=== PATIENT | female | born 1975 | race Caucasian/White ===

== ENCOUNTER 2024-08-30 08:35 | Observation (INO) ==
--- NOTE | 2024-08-07 13:17 | PAT Medication Instructions ---
Medication Instructions Date of Service August 07, 2024 Home Medications bupropion HCl 150 mg 24 hr tablet, extended release (Wellbutrin XL) 150 mg PO QAM bupropion HCl 300 mg 24 hr tablet, extended release (Wellbutrin XL) 300 mg PO QAM cholecalciferol (vitamin D3) 125 mcg (5,000 unit) tablet (Vitamin D3) 125 mcg PO QAM dextroamphetamine-amphetamine 10 mg tablet (Adderall) 10 mg PO QAM dextroamphetamine-amphetamine 20 mg tablet (Adderall) 20 mg PO QAM escitalopram oxalate 20 mg tablet (Lexapro) 20 mg PO QAM lisinopril 10 mg tablet 10 mg PO HS montelukast 10 mg tablet (Singulair) 10 mg PO HS norethindrone (contraceptive) 1 tab PO HS omega-3 fatty acids 2 cap PO DAILY semaglutide 2 mg/dose (8 mg/3 mL) subcutaneous pen injector (Ozempic) 2 mg subcut Q7D STOP 7 days before surgery semaglutide 2 mg/dose (8 mg/3 mL) subcutaneous pen injector (Ozempic) 2 mg s ubcut Q7D ASK your prescriber and surgeon norethindrone (contraceptive) 1 tab PO HS STOP taking 2 weeks before surgery (or as soon as possible if surgery is within 2 weeks) omega-3 fatty acids 2 cap PO DAILY DO NOT take the morning of surgery cholecalciferol (vitamin D3) 125 mcg (5,000 unit) tablet (Vitamin D3) 125 mcg PO QAM dextroamphetamine-amphetamine 10 mg tablet (Adderall) 10 mg PO QAM dextroamphetamine-amphetamine 20 mg tablet (Adderall) 20 mg PO QAM Take morning of surgery With a small sip of water, OTHERWISE NOTHING TO EAT OR DRINK AFTER MIDNIGHT: bupropion HCl 150 mg 24 hr tablet, extended release (Wellbutrin XL) 150 mg PO QAM bupropion HCl 300 mg 24 hr tablet, extended release (Wellbutrin XL) 300 mg PO QAM escitalopram oxalate 20 mg tablet (Lexapro) 20 mg PO QAM Take evening before surgery lisinopril 10 mg tablet 10 mg PO HS montelukast 10 mg tablet (Singulair) 10 mg PO HS Other Notes If you have any questions please call us at [phone] or [phone] or [phone] or [phone]
--- NOTE | 2024-08-09 08:31 | Anesthesiology Consultation ---
Date of Service August 09, 2024 Assessment & Plan (1) Encounter for pre-operative examination: - Check BSG, test DOS - Infectious disease screening: Per assessment on 08/09/24- No known recent infectious disease contacts or current infectious disease symptoms. - GLP-1 medication instructions: Patient informed by PAT to stop 7 days prior to surgery- voiced understanding. DOS 08/30. Advised last dose to be 08/19. - Patient acceptable risk for surgery pending surgeon-ordered PCP preop evaluation (BARRY Flores, appt 08/12). Chart Review Chart Review: Patient seen in Pre Admission Testing Teaching & Discussion Pre-Anesthesia Teaching/Discussion Notes: Instructed NPO after midnight before surgery,except medications with 15 cc of water. Medication instructions provided according to the PAT guidelines. History Surgery Operation Date: 08/30/24 10:05 Proposed Procedures p C5-C7 Anterior Cervical Discectomy and Fusion with Spinal Cord Monitoring - Carroll Cervantes, DO Height/Weight Height: 5 ft 2 in Weight: 105.9 kg Allergies Allergy/AdvReac Type Severity Reaction Status Date / Time No Known Allergies Allergy Verified 08/06/24 12:13 Medications Home Medications Medication Instructions Recorded Confirmed Last Taken bupropion HCl 150 mg 24 hr tablet, 150 mg PO QAM 08/06/24 08/06/24 Unknown extended release (Wellbutrin XL) bupropion HCl 300 mg 24 hr tablet, 300 mg PO QAM 08/06/24 08/06/24 Unknown extended release (Wellbutrin XL) cholecalciferol (vitamin D3) 125 125 mcg PO QAM 08/06/24 08/06/24 Unknown mcg (5,000 unit) tablet (Vitamin D3) dextroamphetamine-amphetamine 10 10 mg PO QAM 08/06/24 08/06/24 Unknown mg tablet (Adderall) dextroamphetamine-amphetamine 20 20 mg PO QAM 08/06/24 08/06/24 Unknown mg tablet (Adderall) escitalopram oxalate 20 mg tablet 20 mg PO QAM 08/06/24 08/06/24 Unknown (Lexapro) lisinopril 10 mg tablet 10 mg PO HS 08/06/24 08/06/24 Unknown montelukast 10 mg tablet 10 mg PO HS 08/06/24 08/06/24 Unknown (Singulair) norethindrone (contraceptive) 1 tab PO HS 08/06/24 08/06/24 Unknown omega-3 fatty acids 2 cap PO DAILY 08/06/24 08/06/24 Unknown semaglutide 2 mg/dose (8 mg/3 mL) 2 mg subcut Q7D 08/06/24 08/06/24 Unknown subcutaneous pen injector (Ozempic) Past Medical History Medical History Anxiety and depression History of ADHD History of hypertension History of prediabetes Sleep apnea No device Exercise / Class Metabolic Activity II 4-5 Yardwork/Stairs/Walk up hill Past Surgical History Surgical History History of esophagogastroduodenoscopy (EGD) w/dilation [place] teeth extracted Past Anesthesia History No Hx of Anesthesia Complications and No Family Hx of Anesthesia Complications History of PONV No Hx of PONV and No Hx of Motion Sickness Social History Smoking Status: Never smoker Do You Dip or Chew Tobacco: No Hx Alcohol Use: Yes alcohol intake frequency: holidays/special occasions only (Rare) Hx Substance Use: Yes substance use type: marijuana (very rare use- gummies) Review of Systems Patient denies chest pain, shortness of breath, dyspnea on exertion, fever, chills, cough, wheezing, palpitations. Physical Exam Vital Signs BP 133/86 P 76 TEMP 98.3 SP02 96%RA RESP 18 Physical Full cervical extension range of motion. Full TMJ range of motion. TMD 3 finger breaths Mallampati Score III Dentition: intact, right upper side implant Lungs: clear throughout to auscultation Cardiac: regular rate and rhythm, no murmurs noted Spine: normal Carotid arteries: negative bruit Extremities: no LE edema Lab Results Anesthesia Preop Results Results Anesthesia Widget: WBC 5.63 K/ul (4.8-10.8) 08/09/24 Hgb 13.2 g/dl (12.0-16.0) 08/09/24 Hct 38.8 % (37.0-47.0) 08/09/24 Plt 326 K/uL (130-400) 08/09/24 Na 139 mmol/L (136-145) 08/09/24 K 3.9 mmol/L (3.5-5.1) 08/09/24 Cl 105 mmol/L (98-107) 08/09/24 CO2 28 mmol/L (21-32) 08/09/24 BUN 12 mg/dl (6-23) 08/09/24 Creat 0.97 mg/dl (0.6-1.2) 08/09/24 Glucose Level 89 mg/dl (70-99(Fasting)) 08/09/24 PT 10.5 Seconds (9.0-12.0) 08/09/24 PTT 27 Seconds (21-31) 08/09/24 INR 1.0 (0.9-1.1) 08/09/24 Urine Color Yellow 08/09/24 Urine Appearance Cloudy (Clear) A 08/09/24 Urine pH 7.0 (4.5-7.5) 08/09/24 Urine Specific [place] 1.022 (1.000-1.030) 08/09/24 Urine Protein Negative (Negative) 08/09/24 Urine Glucose (UA) Negative (Negative) 08/09/24 Urine Ketones 1+ (Negative) H 08/09/24 Urine Blood Negative (Negative) 08/09/24 Urine Nitrite Negative (Negative) 08/09/24 Urine Bilirubin Negative (Negative) 08/09/24 Urine Urobilinogen Negative (Negative) 08/09/24 Urine Leukocyte Esterase Negative (Negative) 08/09/24 Urine WBC (Auto) 0-5 /hpf (0-5) 08/09/24 Urine RBC (Auto) 6-10 /hpf (0-2) H 08/09/24 Urine Hyaline Casts (Auto) 0-2 /lpf (0-2) 08/09/24 Urine Epithelial Cells (Auto) 0-2 /hpf (0-2) 08/09/24 Urine Bacteria (Auto) None Seen (None Seen) 08/09/24 Urine Amorphous Sediment Present (None Prsent) A 08/09/24 Blood Type O Positive 08/09/24 Antibody Screen NEGATIVE 08/09/24 Testing Laboratory Results HGBA1C (04/01/24): 5.2% Electrocardiogram Date: 08/09/24 NSR at 84bpm. "Normal ECG" Chest X-Ray Date: 08/09/24 Findings: + NAD
[~2024-08-30 08:35] MED LIST: DEXAMETHASONE SOD INJ 4 MG/ML VIAL ONE; KETAMINE HCL 10MG/ML SYR ONE; LIDOCAINE 2% 2 ML VIAL/AMP(20MG/ML) INFIL ONE; MIDAZOLAM HCL 1 MG/ML 2ML VIAL ONE; ONDANSETRON INJ 2 MG/ML 2 ML VIAL ONE; PROPOFOL IV EMULSION 10 MG/ML 100 ML VIAL IV ONE; PROPOFOL IV EMULSION 10 MG/ML 20 ML VIAL IV ONE; ROCURONIUM BROMIDE 10 MG/ML 5 ML VIAL IV ONE; fentaNYL citrate PF 100 MCG/2 ML VIAL ONE
[2024-08-30] MEDS: ACETAMINOPHEN 500 MG TAB PO SCH (09:03)
[2024-08-30] MEDS: CeleBREX 200 MG CAP PO SCH (09:03)
[2024-08-30] MEDS: LR 15ML/HR IV SCH (09:03)
[2024-08-30] MEDS: GABAPENTIN 900 MG DOSE PO SCH (09:03)
--- NOTE | 2024-08-30 09:43 | History & Physical Bridge Note ---
Date of Service August 30, 2024 History & Physical Bridge Note I have examined the patient, reviewed the History & Physical and in the interval since the performance of the History & Physical I have noted the following changes of clinical significance: no changes noted
--- NOTE | 2024-08-30 09:44 | History & Physical Report ---
Date of Service August 30, 2024 Assessment & Plan (1) Cervical spondylosis with radiculopathy: Plan: C5-C7 anterior cervical discectomy and fusion History of Present Illness Chief Complaint: Neck and arm pain Primary Care Provider: Judi Curry PA-C This is a 49-year-old female presents with chronic persistent neck and arm pain and failing course of nonoperative care she is here for surgical intervention. Allergies Allergy/AdvReac Type Severity Reaction Status Date / Time No Known Allergies Allergy Verified 08/30/24 08:48 Home Medications Medication Instructions Recorded Confirmed Type bupropion HCl 150 mg 24 hr tablet, 150 mg PO QAM 08/06/24 08/30/24 History extended release (Wellbutrin XL) bupropion HCl 300 mg 24 hr tablet, 300 mg PO QAM 08/06/24 08/30/24 History extended release (Wellbutrin XL) cholecalciferol (vitamin D3) 125 125 mcg PO QAM 08/06/24 08/30/24 History mcg (5,000 unit) tablet (Vitamin D3) dextroamphetamine-amphetamine 10 10 mg PO QAM 08/06/24 08/30/24 History mg tablet (Adderall) dextroamphetamine-amphetamine 20 20 mg PO QAM 08/06/24 08/30/24 History mg tablet (Adderall) escitalopram oxalate 20 mg tablet 20 mg PO QAM 08/06/24 08/30/24 History (Lexapro) lisinopril 10 mg tablet 10 mg PO HS 08/06/24 08/30/24 History montelukast 10 mg tablet 10 mg PO HS 08/06/24 08/30/24 History (Singulair) norethindrone (contraceptive) 1 tab PO HS 08/06/24 08/30/24 History omega-3 fatty acids 2 cap PO DAILY 08/06/24 08/30/24 History semaglutide 2 mg/dose (8 mg/3 mL) 2 mg subcut Q7D 08/06/24 08/30/24 History subcutaneous pen injector (Ozempic) Past Med/Surg History Problem List (Updated 08/30/24 @ 09:44 by Carroll Cervantes DO) Cervical spondylosis with radiculopathy Encounter for pre-operative examination Medical History Anxiety and depression History of ADHD History of hypertension History of prediabetes Sleep apnea No device Surgical History History of esophagogastroduodenoscopy (EGD) w/dilation [place] teeth extracted Social History (System 01/14/22 @ 12:56 by Laura Escobedo) Smoking Status: Never smoker Second Hand Exposure: Yes (hx as child); Do You Dip or Chew Tobacco: No; Tobacco Cessation Education Requested by Patient: No Hx Alcohol Use: Yes Hx Substance Use: Yes Preferred Language: Occitan Communication Ability: Effective 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
[2024-08-30] MEDS ORDERED: PROMETHAZINE HCL 6.25 MG in SODIUM CHLORIDE 0.9% 50 ML IV PRN (10:02)
[2024-08-30] MEDS ORDERED: ATROPINE SULFATE 0.1 MG/ML 10ML SYR IV PRN (10:02)
[2024-08-30] MEDS ORDERED: LABETALOL HCL IV 5 MG/ML 20ML IV PRN (10:02)
[2024-08-30] MEDS ORDERED: ONDANSETRON INJ 2 MG/ML 2 ML VIAL IV PRN ×2 (10:02→13:35)
[2024-08-30] MEDS: ceFAZolin 2000MG 2,000 MG/15 ML SYR IV SCH ×2 (10:08→17:52)
[2024-08-30] MEDS: ceFAZolin 330 MG/ML 1 GM VIAL ONE (10:42)
[2024-08-30] MEDS: FLOSEAL HEMOSTATIC MATRIX 10ML TOP ONE (10:43)
[2024-08-30] MEDS ORDERED: fentaNYL citrate PF 100 MCG/2 ML VIAL ONE (10:46)
[2024-08-30] MEDS ORDERED: SUGAMMADEX SODIUM 200 MG/2 ML VIAL IV ONE (11:03)
[2024-08-30] MEDS ORDERED: ROCURONIUM BROMIDE 10 MG/ML 5 ML VIAL IV ONE ×2 (11:04)
[2024-08-30] MEDS ORDERED: LIDOCAINE 2% 2 ML VIAL/AMP(20MG/ML) INFIL ONE (11:04)
--- NOTE | 2024-08-30 11:41 | Operative Report ---
Post Operative Report Pre & Post Diagnosis Operation Date: 08/30/24 09:45 Pre-Op Diagnosis: Cervical Spondylosis with Radiculopathy Post-Op Diagnosis: Cervical Spondylosis with Radiculopathy I identified the patient and participated in the time-out.: Yes Procedure Operation Date: 08/30/24 09:45 Actual Procedures #1 intracervical discectomy with bilateral foraminotomies C5-C6 C6-C7. #2 intracervical thesis C5-C6 C6-C7. #3 placement of Spira 8 mm cage filled with os design bone graft at C5-C6 C6-C7. #4 application of K2m plate and screws across C5-C6 C6-C7. Surgeon Carroll Cervantes, DO [employer] Ubaldo Christy Estimated Blood Loss 10 Findings See Below The patient is 5 foot 2 weighing 107 kg with a BMI in excess of 43. The patient brought him straight contributed significant technical difficulty with positioning exposure and the procedure itself. This had at least 50% increased operative time. And recommending a modifier 22. Specimens None Indications This is a 49-year-old female who presents with above-mentioned diagnosis of failed course of nonoperative care is here for surgical invention. Description of Procedure Patient was met with identified informed consent obtained. Patient was then taken to the operative suite underwent intubation placed in the supine position on the Samuel table atop the Allan frame. All bony prominences well-padded eyes inspected to ensure no external pressure placed upon them. This point the anterior cervical spine was prepped and draped in normal sterile fashion. With the assistance of fluoroscopy identified the C6 vertebral body. Transverse incision was placed directly overlying this region. Blunt dissection with the assistance of bipolar electrocautery was then performed down to and exposing the anterior cervical spine from C 5 to C7. Self-retaining retractor was placed. Then performed a complete discectomy of C5-C6 out to the uncovertebral joints bilaterally. [place] distracting pins utilized to assist in visualization. Removed all posterior neck fibers largely ligament bilateral foraminotomies performed. Endplates burred to subcortical bleeding bone and an 8 mm spiral cage filled with os design bone graft tapped in position. And then proceeded to C6-C7. Again complete discectomy performed. This included bilateral foraminotomies and removal posterior 8 mm spiral cage filled with os design bone graft to have the position. A K2 M plate screw was then applied with the assistance of fluoroscopy. Distractor apparatus was removed.. All anterior osteophytes burred to smooth cortical surface. Incision was then rohith irrigated explored to ensure no damage surrounding structures remaining bleeding. 10 round GEOVANNA drain inserted. The incision was then closed with 2 Vicryl in the fashion of 4 Monocryl for final closure. Steri-Strips sterile dressing placed. Patient waken taken the PACU stable addition. Please note spinal cord monitoring was utilized at the procedure no changes noted. Ubaldo samson was present at the entire surgery and while the patient positioning complex portion of the surgery and final skin closure. Im ordering 10 grams of Collagen Powder ([facility] A6010 Primary Dressing) and 10 bordered super absorbent ([facility] A6196 Secondary Dressing) to treat an incision wound that was caused by a spine procedure. The incision is approximately 2 cm(W) x 4 cm(L) down to the spinal column and epidural space 2 cm (D) in size and is a full thickness wound showing no signs of infection. Collagen comes in 1 gram packets so 10 packets were ordered. Given the size of the wound, with moderate exudate I chose to order a 10 day supply. The patient will be provided instructions for proper application of the collagen wound kit. The patient will be asked to apply the collagen powder daily and then cover it with sterile dressings dispensed. Collagen was selected as I expect the collagen to attract monocytes and fibroblasts, act as a sacrificial substrate for MMPs, and ultimately proved a matrix for tissue and vessel growth. The collagen will act as a primary dressing in this scenario. It is medically necessary for proper healing of these wounds to improve bioavailability and contact with each wound surface, this is also to help prevent infection of wounds and promote healing ultimately leading to a better healing outcome and limit the risk of infection. I attest to the content of the Intraoperative Record and any orders documented therein. Any exceptions are noted below.
--- NOTE | 2024-08-30 11:51 | Fluoroscopy Report ---
FL cervical 2-3V CLINICAL HISTORY: C5-C7 ACDF COMPARISON STUDY: None FLUOROSCOPY TIME: 14 seconds FLUOROSCOPY IMAGES: 3 EXPOSURE DOSE: 4 mGy FINDINGS: Fluoroscopy was provided for lower cervical spine metallic fusion. IMPRESSION: Intraoperative fluoroscopy. ACT 112: Negative or not required by law. Electronically signed by: Carlos A Holden M.D. 08/30/2024 11:49 AM
[2024-08-30] MEDS: HYDROmorphone INJ 1 MG/ML SYRINGE IV PRN (12:00)
--- NOTE | 2024-08-30 13:09 | Anesthesiology Progress Note ---
Date of Service August 30, 2024 Anesthesia Post Procedure Vital Signs Vital Signs: Temp Pulse Pulse Resp BP Pulse Ox O2 Del Method 08/30/24 13:05 75 12 160/97 H 98 Nasal Cannula 08/30/24 12:55 75 12 168/96 H 98 Nasal Cannula 08/30/24 12:45 76 16 168/98 H 99 Nasal Cannula 08/30/24 12:35 36.7 C 74 14 166/98 H 99 Nasal Cannula 08/30/24 12:25 71 14 163/97 H 98 Nasal Cannula 08/30/24 12:15 70 18 155/98 H 95 Room Air 08/30/24 12:05 76 18 150/103 H 96 Room Air 08/30/24 11:53 36.3 C L 78 18 151/113 H 100 Oxymask 08/30/24 09:23 37 C 75 16 147/94 H 97 Room Air O2 Flow Rate 08/30/24 13:05 2 08/30/24 12:55 2 08/30/24 12:45 2 08/30/24 12:35 2 08/30/24 12:25 2 08/30/24 12:15 08/30/24 12:05 08/30/24 11:53 6 08/30/24 09:23 Pain Intensity Neck: Pain Intensity: 5 Transfer of Care Handoff Completed per policy Notes Mental Status: alert / awake / arousable Patient Amnestic to Procedure: Yes Nausea / Vomiting: adequately controlled Pain: adequately controlled Airway Patency, RR, SpO2: stable & adequate BP & HR: stable & adequate Hydration State: stable & adequate Anesthetic Complications: no major complications apparent
[2024-08-30] MEDS ORDERED: METOCLOPRAMIDE HCL INJ 5 MG/ML 2 ML VIAL IV PRN (13:35)
[2024-08-30] MEDS ORDERED: NALOXONE HCL 0.4 MG/1 ML VIAL/CARP IV PRN (13:35)
[2024-08-30] MEDS ORDERED: HYDROmorphone INJ 1 MG/ML SYRINGE IV PRN (13:35)
[2024-08-30] MEDS ORDERED: dexAMETHasone 8 MG in SYRINGE 0 ML IV PRN (13:35)
[2024-08-30] MEDS ORDERED: HYDROmorphone INJ 0.5 MG/0.5 ML SYR IV PRN (13:35)
[2024-08-30] MEDS ORDERED: SOD PHOSPHATE/SOD BIPHOSPHATE ENEMA 132 ML BTL PR PRN (13:35)
[2024-08-30] MEDS ORDERED: diphenhydrAMINE Capsule 25 MG CAP PO PRN (13:35)
[2024-08-30] MEDS ORDERED: RACEPINEPHRINE 2.25% NEBU SOLN 0.5 ML VIAL INH PRN (13:35)
[2024-08-30] MEDS ORDERED: ALUMINUM/MAGNESIUM SUSP 30 ML UDC PO PRN (13:35)
[2024-08-30] MEDS ORDERED: MAGNESIUM HYDROXIDE SUSP 30 ML UDC PO PRN (13:35)
[2024-08-30] MEDS ORDERED: DO NOT ADMINISTER FLU VACCINE PRN (13:35)
[2024-08-30] MEDS ORDERED: PROMETHAZINE 12.5 MG/50.5 ML BAG IV PRN (13:35)
[2024-08-30] MEDS ORDERED: LORazepam 2 MG/1 ML VIAL IV PRN (13:35)
[2024-08-30] MEDS ORDERED: DO NOT ADMINISTER PNEUMOCOCCAL VACCINE PRN (13:35)
[2024-08-30] MEDS ORDERED: bisacodyL 10 MG SUPP PR PRN (13:35)
[2024-08-30] MEDS ORDERED: FAMOTIDINE 20 MG TAB PO PRN (13:35)
[2024-08-30] MEDS ORDERED: ONDANSETRON 4 MG OD TAB PO PRN (13:35)
[2024-08-30] MEDS ORDERED: hydrOXYzine HCl 25 MG TAB PO PRN (13:35)
[2024-08-30] MEDS ORDERED: LORazepam 0.5 MG TAB PO PRN (13:35)
[2024-08-30] MEDS: LR 60ML/HR IV SCH (13:45)
--- NOTE | 2024-08-30 13:50 | Consultation ---
Date of Consultation August 30, 2024 Assessment & Plan (1) Cervical spondylosis with radiculopathy: (2) Anxiety and depression: (3) History of ADHD: (4) History of hypertension: Plan Ms. Gil is a 49 year old female that presented for an elective cervical discectomy and fusion under the care of Dr. Cervantes after experiencing chronic persistent neck and arm pain and failing nonoperative conservative care. Additional PMH includes: obesity, HTN, anxiety/depression, ADHD. Cervical Discectomy and fusion: POD# 0 s/p C5-C6, C6-C7 discectomy and fusion under the care of Dr. Cervantes. Per ortho for pain control, wound care, anticoagulation and activities. Monitor H&H, pre op hgb 13.2 07/30/24, trend in AM anterior GEOVANNA drain with brittni red bloody output continue incentive spirometry; demonstrated appropriate use Monitor for flatulance and BM Sore throat post op; ordered Chloraseptic spray. PT/OT when appropriate HTN: Chronic Takes Lisinopril QPM; hold for now and reassess on 08/31 normotensive post op; reports home BP 130's systolic range, but becomes elevated into 160's when in a medical setting Anxiety and depression: chronic Takes Wellbutrin and Lexapro; continue ADHD: Chronic Takes Adderall; continue Weight management/Obesity: Takes Ozempic; last dose August 11 in anticipation of surgery. Disposition: PCP: Dr. Curry Code Status: Full Code VTE Prophylaxis: per admitting team I spent a total of 62 minutes coordinating, documenting, and providing care for this patient excluding time spent inthe performance of separately billed services or time spent by another provider/QHP. Supervising Physician Co-Signing Physician Notes Patient seen and examined independently postoperatively on the floors. She is comfortable; not in any distress. She denies fever, chills, chest pain, shortness of breath or abdominal pain. Plan to hold lisinopril dose PM. Continue other home meds. Continue PT OT. Rest per primary I have reviewed the advanced practitioner's documentation, and I agree with, and take responsibility for the plan of care I spent a total of 20 minutes coordinating, documenting, and providing care for this patient excluding time spent in the performance of separately billed services. All of the aforementioned completed while collaborating with the assigned advanced practitioner for a full treatment plan History of Present Illness Requesting Physician: Dr. Cervantes Reason for Consultation: post operative medical consultation Attending Physician: Carroll Cervantes, DO History of Present Illness Ms. Gil is a 49 year old female that presented for an elective cervical discectomy and fusion under the care of Dr. Cervantes after experiencing chronic persistent neck and arm pain and failing nonoperative conservative care. Additional PMH includes: obesity, HTN, anxiety/depression, ADHD. In her hospital room, she is sitting upright in her hospital bed in no apparent distress. Neck collar in place with anterior GEOVANNA drain. Continuous pulse oximeter 96% on 2LNC. She returned to her room from PACU about one hour ago. She denies neuropathic symptoms, Nino, dizziness, chest pain, SOB, abdominal pain or tenderness. She has not passed flatulence yet nor has she had a BM. Discussed pain management options and she demonstrated appropriate use of incentive spiromety. Her only complaint is a sore throat; will order chloroseptic throat spray. was at bedside and provided update[facility] management. We are available 03/10 via [employer] text for any questions for concerns. Please see A/P for further details. Allergies Allergy/AdvReac Type Severity Reaction Status Date / Time No Known Allergies Allergy Verified 08/30/24 08:48 Home Medications Medication Instructions Recorded Confirmed Type bupropion HCl 150 mg 24 hr tablet, 150 mg PO QAM 08/06/24 08/30/24 History extended release (Wellbutrin XL) bupropion HCl 300 mg 24 hr tablet, 300 mg PO QAM 08/06/24 08/30/24 History extended release (Wellbutrin XL) cholecalciferol (vitamin D3) 125 125 mcg PO QAM 08/06/24 08/30/24 History mcg (5,000 unit) tablet (Vitamin D3) dextroamphetamine-amphetamine 10 10 mg PO QAM 08/06/24 08/30/24 History mg tablet (Adderall) dextroamphetamine-amphetamine 20 20 mg PO QAM 08/06/24 08/30/24 History mg tablet (Adderall) escitalopram oxalate 20 mg tablet 20 mg PO QAM 08/06/24 08/30/24 History (Lexapro) lisinopril 10 mg tablet 10 mg PO HS 08/06/24 08/30/24 History montelukast 10 mg tablet 10 mg PO HS 08/06/24 08/30/24 History (Singulair) norethindrone (contraceptive) 1 tab PO HS 08/06/24 08/30/24 History omega-3 fatty acids 2 cap PO DAILY 08/06/24 08/30/24 History semaglutide 2 mg/dose (8 mg/3 mL) 2 mg subcut Q7D 08/06/24 08/30/24 History subcutaneous pen injector (Ozempic) Patient History Medical History Sleep apnea No device History of prediabetes Anxiety and depression History of ADHD History of hypertension Surgical History [place] teeth extracted History of esophagogastroduodenoscopy (EGD) w/dilation Social History Smoking Status: Never smoker Second Hand Exposure: Yes (hx as child); Do You Dip or Chew Tobacco: No; Tobacco Cessation Education Requested by Patient: No Hx Alcohol Use: Yes Hx Substance Use: Yes Preferred Language: Sammarinese Communication Ability: Effective Buyer Grain Required: No Beliefs That Will Affect Care: None Current Living Situation: Spouse Other Information That Helps Us Care for You: No Feels Safe at Home: Yes Safety Concerns: Feels Safe At This Time Assistive Devices: Glasses Review of Systems Review of Systems: Neuro: (-) Falls, trauma, slurred speech HEENT: (-) NINO, dizziness, dysphagia, visual or auditory changes CV: (-) CP, palpitations, swelling Resp: (-) SOB GI: (-) appetite changes, N/V/D, bowel changes : (-) urinary changes Skin: (-) rashes Psych: (-) anxiety, depression Physical Exam Physical Exam: Neuro: AAOx4, PERRLA, no aphagia, memory changes, CNII-XII grossly intact HEENT: head normocephalic, moist mucus membranes CV: S1/S2, (-) M/G/R, (-) edema, cap refill < 3 seconds. Anterior GEOVANNA drain brittni red blood. Resp: Lungs CTA in all skinner. On RA. SpO2 96% continuous monitor GI: Abdomen S/NT/ND, Ax4 bowel sounds, (-) CVA tenderness Musculoskeletal: 5/5 B/L UE strength, 5/5 B/L LE strength. No gait disturbance. neck collar in place Skin: (-) rashes , (-) erythema. Psych: euthymic mood Results & Data Vital Signs (Past 12 Hours) Vital Signs Temp Pulse Pulse Resp BP Pulse Ox O2 Del Method 08/30/24 13:35 36.6 C 79 16 138/92 94 Room Air 08/30/24 13:05 75 12 160/97 H 98 Nasal Cannula 08/30/24 12:55 75 12 168/96 H 98 Nasal Cannula 08/30/24 12:45 76 16 168/98 H 99 Nasal Cannula 08/30/24 12:35 36.7 C 74 14 166/98 H 99 Nasal Cannula 08/30/24 12:25 71 14 163/97 H 98 Nasal Cannula 08/30/24 12:15 70 18 155/98 H 95 Room Air 08/30/24 12:05 76 18 150/103 H 96 Room Air 08/30/24 11:53 36.3 C L 78 18 151/113 H 100 Oxymask 08/30/24 09:23 37 C 75 16 147/94 H 97 Room Air O2 Flow Rate 08/30/24 13:35 08/30/24 13:05 2 08/30/24 12:55 2 08/30/24 12:45 2 08/30/24 12:35 2 08/30/24 12:25 2 08/30/24 12:15 08/30/24 12:05 08/30/24 11:53 6 08/30/24 09:23 Diagnostic Findings Cervical Spine X-Ray 08/30/24 00:00 FL cervical 2-3V CLINICAL HISTORY: C5-C7 ACDF COMPARISON STUDY: None FLUOROSCOPY TIME: 14 seconds FLUOROSCOPY IMAGES: 3 EXPOSURE DOSE: 4 mGy FINDINGS: Fluoroscopy was provided for lower cervical spine metallic fusion. IMPRESSION: Intraoperative fluoroscopy. ACT 112: Negative or not required by law. Electronically signed by: Carlos A Holden M.D. 08/30/2024 11:49 AM
[2024-08-30] MEDS: traMADol HCL 50 MG TABLET PO PRN (14:10)
[2024-08-30] MEDS: ACETAMINOPHEN 1,000 MG/100 ML VIAL IV PRN (14:53)
[2024-08-30] MEDS ORDERED: CHLORASEPTIC (PHENOL) 1.4% SOLN 180 ML BTL MT PRN (15:13)
[2024-08-30] MEDS ORDERED: CHLORASEPTIC (PHENOL) 1.4% SOLN 180 ML BTL PO PRN (15:14)
[2024-08-30] MEDS: ORAL CONTRACEPTIVE: ORDER AWAITING ACTION SCH (17:53)
[2024-08-30] MEDS: oxyCODONE HCL IR 5 MG TAB (IMMEDIATE RELEASE) PO PRN (18:44)
[2024-08-30] MEDS: DOCUSATE SODIUM/SENNA 50/8.6MG TAB PO SCH (20:40)
[2024-08-30] MEDS: MONTELUKAST SODIUM 10 MG TABLET PO SCH (20:40)
[2024-08-30] MEDS ORDERED: lisinopril 10 MG TAB PO SCH (21:00)
[2024-08-31] MEDS: POLYETHYLENE (MIRALAX) 17 GM PACK PO SCH (06:23)
[2024-08-31 07:43] VITALS: RESP 16
[2024-08-31 08:02] LABS: Hematocrit (blood only) 38.8 % (37.0-47.0); Hemoglobin 13.5 g/dl (12.0-16.0); Mean Corpuscular Hemoglobin 32.1 pg (25.0-34.0); Mean Corpuscular Hgb Conc 34.8 g/dL (32.0-36.0); Mean Corpuscular Volume 92.2 fL (80.0-100.0); Mean Platelet Volume 8.8 fL (9.4-12.4); Platelet Count 378 K/uL (130-400); RDW Coefficient of Variation 11.7 % (11.5-14.5); RDW Standard Deviation 39.5 fL (36.4-46.3); Red Blood Count 4.21 M/uL (4.20-5.40); White Blood Count 12.09 K/ul (4.8-10.8)
[2024-08-31 08:09] LABS: BUN Creatinine Ratio 13.1 (10-20); Calcium 8.9 mg/dl (8.6-10.3); Creatinine Clr Calc Pharmacy 79.1 ml/min; Magnesium 2.1 mg/dl (1.7-2.4); Phosphorus 3.1 mg/dl (2.5-4.9); Potassium 4.1 mmol/L (3.5-5.1)
[2024-08-31 08:22] VITALS: TEMP 98.1
[2024-08-31] MEDS: DEXTROAMPHETAMINE/AMPHETAMINE IR 10 MG TAB PO SCH (08:25)
[2024-08-31] MEDS: buPROPion XL 150 MG TABCR PO SCH (08:25)
[2024-08-31] MEDS: buPROPion XL 300 MG TABCR PO SCH (08:25)
[2024-08-31] MEDS: ESCITALOPRAM OXALATE 20 MG TAB PO SCH (08:25)
[2024-08-31] MEDS: CHOLECALCIFEROL 125 MCG (5,000 UNITS) TAB PO SCH (08:25)
[2024-08-31] MEDS: dexAMETHasone 6 MG in SYRINGE 0 ML IV SCH (08:26)
[2024-08-31] MEDS: ACETAMINOPHEN 500 MG TAB PO PRN (08:47)
[2024-08-31] MEDS ORDERED: DEXTROAMPHETAMINE/AMPHETAMINE IR 20 MG TAB PO SCH (09:00)
--- NOTE | 2024-08-31 09:01 | Hospitalist Progress Note ---
Date of Service August 31, 2024 Assessment & Plan (1) Cervical spondylosis with radiculopathy: (2) Anxiety and depression: (3) History of ADHD: (4) History of hypertension: Plan Ms. Gil is a 49 year old female that presented for an elective cervical discectomy and fusion under the care of Dr. Cervantes after experiencing chronic persistent neck and arm pain and failing nonoperative conservative care. Additional PMH includes: obesity, HTN, anxiety/depression, ADHD. Cervical Discectomy and fusion: POD# 1 s/p C5-C6, C6-C7 discectomy and fusion under the care of Dr. Cervantes. Per ortho for pain control, wound care, anticoagulation and activities. Monitor H&H, pre op hgb 13.2 07/30/24, current 13.5 anterior GEOVANNA drain with serosang. fluid continue incentive spirometry; demonstrated appropriate use Sore throat post op; ordered Chloraseptic spray. PT/OT when appropriate HTN: Chronic Takes Lisinopril QPM;resume Anxiety and depression: chronic Takes Wellbutrin and Lexapro; continue ADHD: Chronic Takes Adderall; continue Weight management/Obesity: Takes Ozempic; last dose August 11 in anticipation of surgery. Disposition: PCP: Dr. Curry Code Status: Full Code VTE Prophylaxis: per surgical team Admission and Anticipated Discharge Date Admission Date: August 30, 2024 Subjective Pt seen in follow up of med. consult, pt s/p cervical spine surgery Currently sitting up in chair in NAD Denies any fever, chills, chest pain, shortness of breath, abd. pain, n/v Overall she says she is feeling well Review of Systems Review of Systems: All systems reviewed & are unremarkable except as noted in Subjective Physical Exam Physical Exam: General: obese F in NAD, cervical collar on Neuro: awake, alert, answers appropriately, PERRL, speech fluent, no facial asymmetry, moves extremities HEENT: head normocephalic, moist mucus membranes CV: S1/S2, (-) M/G/R, (-) edema, cap refill < 3 seconds. Anterior GEOVANNA drain w/ serosang. fluid Resp: Lungs CTA in all skinner. On RA. SpO2 96% continuous monitor GI: Abdomen S/NT/ND, Ax4 bowel sounds, (-) CVA tenderness Musculoskeletal: 5/5 B/L UE strength, 5/5 B/L LE strength. No gait disturbance. neck collar in place Skin: (-) rashes , (-) erythema. Psych: euthymic mood Results & Data Results & Data Vital Signs (Past 12 Hours) Vital Signs Temp Pulse Pulse Resp BP Pulse Ox O2 Del Method 08/31/24 08:20 36.7 C 100 H 16 135/86 97 Room Air 08/31/24 07:41 36.6 C 88 16 134/84 98 Room Air 08/31/24 07:15 86 18 96 Room Air 08/31/24 06:24 36.4 C L 91 H 18 134/83 97 Room Air 08/31/24 04:38 36.8 C 89 16 154/91 H 97 Room Air 08/31/24 03:12 84 18 96 Room Air 08/31/24 02:09 36.5 C 83 18 144/83 H 96 Room Air 08/31/24 00:10 36.6 C 83 18 135/85 97 Room Air 08/30/24 23:30 87 17 95 Room Air 08/30/24 22:10 36.7 C 84 18 120/79 97 Room Air Laboratory Results 08/31/24 08/30/24 08/30/24 Range/Units 07:43 16:23 12:31 WBC 12.09 H (4.8-10.8) K/ul RBC 4.21 (4.20-5.40) M/uL Hgb 13.5 (12.0-16.0) g/dl Hct 38.8 (37.0-47.0) % MCV 92.2 (80.0-100.0) fL MCH 32.1 (25.0-34.0) pg MCHC 34.8 (32.0-36.0) g/dL RDW Std Deviation 39.5 (36.4-46.3) fL RDW Coeff of Rigoberto 11.7 (11.5-14.5) % Plt Count 378 (130-400) K/uL MPV 8.8 L (9.4-12.4) fL Sodium 138 (136-145) mmol/L Potassium 4.1 (3.5-5.1) mmol/L Chloride 103 (98-107) mmol/L Carbon Dioxide 30 (21-32) mmol/L Anion Gap 5 (3-11) BUN 13 (6-23) mg/dl Creatinine 0.99 (0.6-1.2) mg/dl Est Cr Clr Drug Dosing 79.1 ml/min eGFR 69.90 BUN/Creatinine Ratio 13.1 (10-20) Glucose 117 H (70-99(Fasting)) mg/dl POC Glucose 125 H 103 H (70-99) mg/dl Calcium 8.9 (8.6-10.3) mg/dl Phosphorus 3.1 (2.5-4.9) mg/dl Magnesium 2.1 (1.7-2.4) mg/dl POC Ur Test (NEG) 08/30/24 Range/Units 09:28 WBC (4.8-10.8) K/ul RBC (4.20-5.40) M/uL Hgb (12.0-16.0) g/dl Hct (37.0-47.0) % MCV (80.0-100.0) fL MCH (25.0-34.0) pg MCHC (32.0-36.0) g/dL RDW Std Deviation (36.4-46.3) fL RDW Coeff of Rigoberto (11.5-14.5) % Plt Count (130-400) K/uL MPV (9.4-12.4) fL Sodium (136-145) mmol/L Potassium (3.5-5.1) mmol/L Chloride (98-107) mmol/L Carbon Dioxide (21-32) mmol/L Anion Gap (3-11) BUN (6-23) mg/dl Creatinine (0.6-1.2) mg/dl Est Cr Clr Drug Dosing ml/min eGFR BUN/Creatinine Ratio (10-20) Glucose (70-99(Fasting)) mg/dl POC Glucose (70-99) mg/dl Calcium (8.6-10.3) mg/dl Phosphorus (2.5-4.9) mg/dl Magnesium (1.7-2.4) mg/dl POC Ur Test NEG (NEG) Medications Administered Current Inpatient Medications Acetaminophen (Acetaminophen 500 Mg Tab) 1,000 mg PO Q8H PRN PRN Reason: MILD Pain (1,2,3) & Pre PT Stop: 09/29/24 13:34 Last Admin: 08/31/24 08:47 Dose: 1,000 mg Al Hydrox/Mg Hydrox/Simethicone (Aluminum/Magnesium Susp 30 Ml Udc) 30 ml PO Q6H PRN PRN Reason: Dyspepsia Stop: 09/29/24 13:34 Amphetamine/Dextroamphetamine (Dextroamphetamine/Amphetamine Ir 10 Mg Tab) 30 mg PO QAM [facility] Stop: 09/14/24 08:59 Last Admin: 08/31/24 08:25 Dose: 30 mg Bisacodyl (Bisacodyl 10 Mg Supp) 10 mg TN DAILY PRN PRN Reason: Constipation Stop: 09/29/24 13:34 Bupropion HCl (Bupropion Xl 150 Mg Tabcr) 150 [facility] Stop: 09/30/24 08:59 Last Admin: 08/31/24 08:25 Dose: 150 mg Bupropion HCl (Bupropion Xl 300 Mg Tabcr) 300 mg [facility] Stop: 09/30/24 08:59 Last Admin: 08/31/24 08:25 Dose: 300 mg Diphenhydramine HCl (Diphenhydramine Capsule 25 Mg Cap) 25 mg PO Q6H PRN PRN Reason: Allergic Rhinitis/Insomnia Stop: 09/29/24 13:34 Epinephrine (Racepinephrine 2.25% Nebu Soln 0.5 Ml Vial) 0.5 ml INH NOW PRN PRN Reason: If stridor present Escitalopram Oxalate (Escitalopram Oxalate 20 Mg Tab) 20 mg [facility] Stop: 09/30/24 08:59 Last Admin: 08/31/24 08:25 Dose: 20 mg Famotidine (Famotidine 20 Mg Tab) 20 mg PO Q12H PRN PRN Reason: Dyspepsia Stop: 09/29/24 13:34 Hydromorphone HCl (Hydromorphone Inj 0.5 Mg/0.5 Ml Syr) 0.5 mg IV Q3H PRN PRN Reason: MODERATE Pain(4,5,6)/Pre PT Stop: 09/13/24 13:34 Hydromorphone HCl (Hydromorphone Inj 1 Mg/Ml Syringe) 1 mg IV Q3H PRN PRN Reason: SEVERE Pain (7,8,9,10) Stop: 09/13/24 13:34 Hydroxyzine HCl (Hydroxyzine Hcl 25 Mg Tab) 25 mg PO Q8H PRN PRN Reason: Anxiety Stop: 09/29/24 13:34 Dexamethasone 8 mg/ Syringe 2 mls @ 1 mls/min IV NOW PRN PRN Reason: If stridor present Acetaminophen (Ofirmev) 1,000 mg in 100 mls @ 400 mls/hr IV Q8H PRN PRN Reason: MILD Pain (1,2,3) & Pre PT Stop: 08/31/24 13:35 Last Infusion: 08/30/24 15:12 Dose: Infused Promethazine HCl (Phenergan) 12.5 mg in 50.5 mls @ 202 mls/hr IV Q6H PRN PRN Reason: Nausea And Vomiting Stop: 09/29/24 13:34 Dexamethasone 6 mg/ Syringe 1.5 mls @ 1 mls/min IV DAILY [facility] Stop: 09/02/24 09:02 Last Admin: 08/31/24 08:26 Dose: 1 mls/min Influenza Virus Vaccine Quadrival (Do Not Administer Flu Vaccine) 1 each N/A PRN PRN PRN Reason: Notification Stop: 09/29/24 13:34 Lisinopril (Lisinopril 10 Mg Tab) 10 mg PO HS [place] Stop: 09/29/24 20:59 Lorazepam (Lorazepam 0.5 Mg Tab) 0.5 mg PO Q8H PRN PRN Reason: Sedation/Anxiety Stop: 09/29/24 13:34 Lorazepam (Lorazepam 2 Mg/1 Ml Vial) 0.5 mg IV Q8H PRN PRN Reason: Sedation/Anxiety Stop: 09/29/24 13:34 Magnesium Hydroxide (Magnesium Hydroxide Susp 30 Ml Udc) 30 ml PO Q24H PRN PRN Reason: Constipation Stop: 09/29/24 13:34 Metoclopramide HCl (Metoclopramide Hcl Inj 5 Mg/Ml 2 Ml Vial) 10 mg IV Q6H PRN PRN Reason: Nausea &/or Vomiting Stop: 09/29/24 13:34 Miscellaneous (Oral Contraceptive: Order Awaiting Action) 1 each N/A QS [facility] Stop: 09/29/24 15:59 Last Admin: 08/31/24 08:26 Dose: Not Given Montelukast Sodium (Montelukast Sodium 10 Mg Tablet) 10 mg PO HS [place] Stop: 09/29/24 20:59 Last Admin: 08/30/24 20:40 Dose: 10 mg Naloxone HCl (Naloxone Hcl 0.4 Mg/1 Ml Vial/Carp) 0.1 mg IV Q5M PRN PRN Reason: Oversedation/Resp depression Stop: 09/29/24 13:34 Ondansetron HCl (Ondansetron Inj 2 Mg/Ml 2 Ml Vial) 4 mg IV Q6H PRN PRN Reason: Nausea &/or Vomiting Stop: 09/29/24 13:34 Ondansetron HCl (Ondansetron 4 Mg Od Tab) 4 mg PO Q6H PRN PRN Reason: Nausea Stop: 09/29/24 13:34 Oxycodone HCl (Oxycodone Hcl Ir 5 Mg Tab (Immediate Release)) 5 - 10 mg PO Q4H PRN PRN Reason: MOD/SEV Pain & Pre PT Stop: 09/13/24 13:34 Last Admin: 08/31/24 04:43 Dose: 5 mg Phenol (Chloraseptic (Phenol) 1.4% Soln 180 Ml Btl) 2 sprays PO BID PRN PRN Reason: sore throat post op Stop: 09/29/24 15:12 Pneumococcal Polyvalent Vaccine (Do Not Administer Pneumococcal Vaccine) 1 each N/A PRN PRN PRN Reason: Notification Stop: 09/29/24 13:34 Polyethylene Glycol (Polyethylene (Miralax) 17 Gm Pack) 17 gm PO Q6 [facility] Stop: 09/30/24 05:59 Last Admin: 08/31/24 06:23 Dose: 17 gm Senna/Docusate Sodium (Docusate Sodium/Senna 50/8.6mg Tab) 2 tab PO HS [place] Stop: 09/29/24 20:59 Last Admin: 08/30/24 20:40 Dose: 2 tab Sodium Biphosphate/Sodium Phosphate (Sod Phosphate/Sod Biphosphate Enema 132 Ml Btl) 132 ml TN ONE PRN PRN Reason: Constipation Stop: 09/29/24 13:34 Tramadol HCl (Tramadol Hcl 50 Mg Tablet) 50 - 100 mg PO Q4H PRN PRN Reason: MOD/SEV Pain & Pre PT Stop: 09/29/24 13:34 Last Admin: 08/31/24 02:21 Dose: 100 mg Vitamin D (Cholecalciferol 125 Mcg (5,000 Units) Tab) 125 m[facility] Stop: 09/30/24 08:59 Last Admin: 08/31/24 08:25 Dose: 125 mcg
[2024-08-31 10:32] VITALS: BP 150/96; PULSE 95; O2SAT 95
--- NOTE | 2024-08-31 10:46 | Discharge Summary ---
Date of Service August 31, 2024 Admission HPI Per Admitting Provider This is a 49-year-old female presents with chronic persistent neck and arm pain and failing course of nonoperative care she is here for surgical intervention. Principal Diagnosis Cervical spondylosis with radiculopathy Discharge Data Allergies Allergy/AdvReac Type Severity Reaction Status Date / Time No Known Allergies Allergy Verified 08/30/24 08:48 Consultations 08/30/24 13:35 Consult Hospitalist Routine Procedures Performed Operation Date: 08/30/24 09:45 Actual Procedures p C5-C7 Anterior Cervical Discectomy and Fusion, Spinal Cord Monitoring(Not Applicable) - Carroll Cervantes DO Ordered Studies 08/30/24 FL cervical 2-3V Routine Hospital Course (1) Cervical spondylosis with radiculopathy: Patient underwent multilevel anterior cervical discectomy fusion tolerated this well was taken orthopedic for postoperative. Postop issues swallowing well. No hoarseness. Excellent strength testing. GEOVANNA drain decreasing. Simply discharged home. Discharge orders instructions from the chart and further review. Total Time Total Time Spent Total Time Spent (In Minutes): 20 minutes Discharge Plan Discharge Items Patient Disposition: Home - Self-Care Reason For Visit: Cervical Spondylosis with Radiculopathy Discharge Diagnosis: Cervical spondylosis with radiculopathy Activity: As commented below Non-emergency contact: Primary Care Provider Call non-emergency contact if: you have any medication questions Follow-up/Referrals: Judi Curry PA-C [Primary Care Provider] - Diet: Regular Addtl Attending Provider Instructions: ACTIVITY RECOMMENDATIONS: SELF CARE INSTRUCTIONS AFTER CERVICAL FUSIONS 1. No smoking. Smoking drastically decreases the chance of a solid fusion. 2. No bending, lifting more than 5 pounds, or twisting (roll like a log when turning in bed). 3. You may shower 3 days after surgery. Thoroughly dry wound. Do not soak in the tub. 4. Cervical collar: Must be worn at all times including sleeping. You may remove the brace only to bath, eat and if you are sitting in a recliner. 5. Please walk as much as you can for exercise. Gradually increase the distance that you walk as your endurance increases. 6. You may return to previous diet. SPECIAL CARE INSTRUCTIONS: VERY IMPORTANT TO READ AND REVIEW A. Do not take any anti-inflammatory medications (i.e. Indocin, Advil, Aspirin, Naprosyn, Aleve, Motrin, etc.) as these may inhibit the chance of a solid fusion. Tylenol is okay to take. B. Your surgical incision has been closed with a cosmetic suture under the skin that will dissolve in about 6 weeks. In 14 days, you can use a pair of clean scissors and cut the suture that is left outside of the skin at the ends of your incision. C. Complications are uncommon, but please contact us if you have any signs or symptoms of: 1. wound infection (fever higher than 102.5 degrees F, redness, separation of wound, drainage, or increasing pain from the incision) 2. blood clots in legs (pain, swelling, redness and warmth in legs) 3. urinary tract infection (fever higher than 102.5 degrees, burning upon urination or increased frequency of urination) 4. nerve problems (inability to walk on your toes or heels, numbness, loss of bowel or bladder control) 5. any other symptoms that concern you. D. Please call the office at if you have any concerns or questions about your operation or recovery. MANAGING PAIN AFTER SPINAL SURGERY 1. Narcotic medication is intended for short-term use and will be provided for surgical pain. Surgical pain usually lasts for a period of 4-6 weeks. Narcotic medication includes Percocet, Vicodin, Darvocet, Tylenol #3 or Lortab. 2. Longer-term pain is more appropriately treated with non-narcotic medication such as Tylenol ES. 3. Muscle spasm is not appropriately treated with narcotics. Muscle relaxers such as Soma, Flexeril or Skelaxin can be used along with Tylenol ES. 4. Remember that we all live with some "aches and pains". This is not unusual or uncommon after an injury or as we get older. 5. We will provide appropriate medication within the normal guidelines of their prescribed use. We will also be very cautious and aware of potential abuse and extended duration of patients' medication needs. 6. Please allow 2-3 days to process refills. Prescriptions will not be mailed but must be picked up at the office. FOLLOW UP VISIT: Keep your scheduled follow-up appointment. Any questions, please call the office at . Pending Studies at Discharge: No Stand-Alone Forms: My [facility], Smoking Cessation Medications and DC Order Prescriptions: New tramadol 50 mg tablet 50 mg PO Q6H PRN (Reason: pain, moderate) Qty: 30 0RF oxycodone 5 mg tablet 5 mg PO Q6H PRN (Reason: pain) Qty: 30 0RF Continued dextroamphetamine-amphetamine [Adderall] 10 mg Tablet 10 mg PO QAM dextroamphetamine-amphetamine [Adderall] 20 mg Tablet 20 mg PO QAM lisinopril 10 mg Tablet 10 mg PO HS montelukast [Singulair] 10 mg Tablet 10 mg PO HS escitalopram oxalate [Lexapro] 20 mg Tablet 20 mg PO QAM Fish Oil Capsule 2 cap PO DAILY bupropion HCl [Wellbutrin XL] 300 mg Tablet Extended Release 24 Hr 300 mg PO QAM bupropion HCl [Wellbutrin XL] 150 mg Tablet Extended Release 24 Hr 150 mg PO QAM cholecalciferol (vitamin D3) [Vitamin D3] 125 mcg (5,000 unit) Tablet 125 mcg PO QAM Ozempic 2 mg/dose (8 mg/3 mL) Pen Injector 2 mg SUBCUT Q7D Patient Comments: mondays norethindrone (contraceptive) 1 tab PO HS Discharge Orders: Discharge Order (Routine); Ordered 08/31/24 Ordered By: Carroll Cervantes Admission Data Admit Date/Time: 08/30/24 11:45 Attending Provider: Carroll Cervantes Admit Provider: Carroll Cervantes Primary Care Provider: Judi Curry Other Providers: Kat Lawrence
== END 2024-08-31 11:29 | disposition home or self-care (01) ==
LOC: 3E 08:35 → ASU 08:35